=== PATIENT | female | born 1940 | race Caucasian/White ===

== ENCOUNTER 2018-07-16 05:07 | Observation (INO) ==
--- NOTE | 2018-07-16 05:16 | ED ---
HPI General Chief Complaint: Chest Pain Stated Complaint: EVAC/Chest pain Time Seen by Provider: 07/16/18 05:10 Source: patient Mode of arrival: EMS Limitations: no limitations History of Present Illness HPI narrative: Patient complains of warmth sensation over her chest concomitant with palpitations that feel fast, along with chest tightness which was new for her. Patient has a history of hypertension, has a special police and primary care physician who are both from [place]. She just recently moved to [facility]. Past medical history significant for hypertension, diverticulitis with bowel perforation which resulted in a colostomy, patient had a colostomy reversal, hernia repair. MD complaint: Reports palpitations Related Data Home Medications Medication Instructions Recorded Confirmed ascorbic acid (vitamin C) [Vitamin 500 mg PO DAILY 07/16/18 07/16/18 C] aspirin [Aspirin Childrens] 81 mg PO DAILY 07/16/18 07/16/18 biotin 1 mg PO DAILY 07/16/18 07/16/18 cholecalciferol (vitamin D3) 400 unit PO DAILY 07/16/18 07/16/18 [Vitamin D3] fenofibrate 160 mg PO DAILY 07/16/18 07/16/18 omega 6-[id number]-djs-fish oil [Fish Oil] 07/16/18 Allergies Allergy/AdvReac Type Severity Reaction Status Date / Time Penicillins Allergy Redness of Verified 07/16/18 05:37 Skin Review of Systems ROS: all other systems reviewed are negative PMFSH History History Provided By: Patient Medical History Medical History Bowel perforation (Acute) Diverticulitis (Acute) Hypertension (Acute) Sepsis (Acute) Surgical History Surgical History H/O hernia repair (Acute) History of colostomy reversal (Acute) Social History Social History Second Hand Smoke Exposure: No Smoking Status: Former smoker Tobacco Type: Cigarettes How Often Do You Have a Drink Containing Alcohol: 4 or more times a week Recent Travel in [facility] within the Last 8 Weeks: No Recent Out of Country Travel within the Last 8 Weeks: No Exam Narrative Exam Narrative: GENERAL: elderly female patient in no apparent distress. SKIN: Warm and dry. HEAD: Atraumatic. Normocephalic. EYES: Pupils equal and round. No scleral icterus. No injection or drainage. ENT: No nasal bleeding or discharge. Mucous membranes pink and moist. NECK: Trachea midline. No JVD. CARDIOVASCULAR: Regular rate and rhythm. no rubs or gallops RESPIRATORY: No accessory muscle use. Clear to auscultation. Breath sounds equal bilaterally. GASTROINTESTINAL: Abdomen soft, non-tender, nondistended. No rebound or guarding MUSCULOSKELETAL: Extremities without clubbing, cyanosis, or edema. No obvious deformities. NEUROLOGICAL: Awake and alert. No obvious cranial nerve deficits. Motor grossly within normal limits. Five out of 5 muscle strength in the arms and legs. Normal speech. PSYCHIATRIC: Appropriate mood and affect; insight and judgment normal. Course Initial Documented Vital Signs Temperature 98.3 F 07/16/18 05:10 Pulse Rate 94 H 07/16/18 05:10 Respiratory Rate 20 07/16/18 05:10 Blood Pressure 127/74 07/16/18 05:10 Pulse Oximetry 100 07/16/18 05:10 Last Documented Vital Signs Temperature 98.0 F 07/16/18 07:10 Pulse Rate 78 07/16/18 07:17 Respiratory Rate 18 07/16/18 07:10 Blood Pressure 110/67 07/16/18 07:10 Pulse Oximetry 98 07/16/18 07:17 Medical Decision Making MDM Narrative Medical decision making narrative: No leukocytosis, no anemia, no left shift. Thrombocytopenia of 85,000 Coagulation profile within normal limits Normal kidney liver pancreatic functions Normal electrolytes Chest x-ray read by radiologist as no acute cardiopulmonary abnormality identified. Normal beta natruretic peptide, negative first set of cardiac enzymes CT chest read by the radiologist as no PE identified. Nonacute findings include emphysema centrilobular, coronary arteries calcification and moderate atherosclerotic disease of the aorta. Medical Screen Exam Complete: Yes Emergency Medical Condition: Yes Medical Records Medical records reviewed: Yes I reviewed the patient's medical records. Lab Data Lab results reviewed: Yes I reviewed the patient's lab results. Result diagrams: 07/16/18 05:15 07/16/18 05:15 Lab Results 07/16/18 07/16/18 07/16/18 Range/Units 05:15 05:15 05:15 CBC w Diff Slide review pending WBC 5.5 (4.0-11.0) th/mm3 RBC 4.35 (4.00-5.30) mil/mm3 Hgb 12.5 (11.6-15.3) gm/dL Hct 38.2 (35.0-46.0) % MCV 87.8 (80.0-100.0) fL MCH 28.8 (27.0-34.0) pg MCHC 32.8 (32.0-36.0) % RDW 13.0 (11.6-17.2) % Plt Count 85 L (150-450) th/mm3 MPV 8.7 (7.0-11.0) fL Neut % (Auto) 55.4 (16.0-70.0) % Lymph % (Auto) 35.3 (9.0-44.0) % [place] % (Auto) 6.6 (0.0-8.0) % Eos % (Auto) 1.0 (0.0-4.0) % Baso % (Auto) 1.7 (0.0-2.0) % Neut # (Auto) 3.0 (1.8-7.7) th/mm3 Lymph # (Auto) 1.9 (1.0-4.8) th/mm3 [place] # (Auto) 0.4 (0.0-0.9) th/mm3 Eos # (Auto) 0.1 (0.0-0.4) th/mm3 Baso # (Auto) 0.1 (0.0-0.2) th/mm3 WBC Differential . Diff Scan Auto diff confirmed Differential Comment . Platelet Estimate Low L (Normal) Platelet Morphology Enlarged H (Normal) RBC Morphology Normal (Normal) PT 11.7 H (9.8-11.6) sec INR 1.2 Ratio APTT 21.9 L (23.4-31.7) sec Sodium 139 (136-145) meq/L Potassium 3.7 (3.5-5.1) meq/L Chloride 106 (98-107) meq/L Carbon Dioxide 24.9 (21.0-32.0) meq/L Anion Gap 8 (5-15) meq/L BUN 16 (7-18) mg/dL Creatinine 0.69 (0.50-1.00) mg/dL Estimated GFR 82 L (>89) mL/min Random Glucose 114 H (74-106) mg/dL Calcium 8.3 L (8.5-10.1) mg/dL Total Bilirubin 0.7 (0.2-1.0) mg/dL AST 18 (15-37) U/L ALT 25 (10-53) U/L Alkaline Phosphatase 54 (45-117) U/L Total Creatine Kinase 87 (26-192) U/L Troponin I Less than 0.02 L (0.02-0.05) ng/mL B-Natriuretic Peptide (0-100) pg/mL Total Protein 7.2 (6.4-8.2) g/dL Albumin 3.4 (3.4-5.0) g/dL Lipase 277 (73-393) U/L 07/16/18 Range/Units 05:15 CBC w Diff WBC (4.0-11.0) th/mm3 RBC (4.00-5.30) mil/mm3 Hgb (11.6-15.3) gm/dL Hct (35.0-46.0) % MCV (80.0-100.0) fL MCH (27.0-34.0) pg MCHC (32.0-36.0) % RDW (11.6-17.2) % Plt Count (150-450) th/mm3 MPV (7.0-11.0) fL Neut % (Auto) (16.0-70.0) % Lymph % (Auto) (9.0-44.0) % [place] % (Auto) (0.0-8.0) % Eos % (Auto) (0.0-4.0) % Baso % (Auto) (0.0-2.0) % Neut # (Auto) (1.8-7.7) th/mm3 Lymph # (Auto) (1.0-4.8) th/mm3 [place] # (Auto) (0.0-0.9) th/mm3 Eos # (Auto) (0.0-0.4) th/mm3 Baso # (Auto) (0.0-0.2) th/mm3 WBC Differential Diff Scan Differential Comment Platelet Estimate (Normal) Platelet Morphology (Normal) RBC Morphology (Normal) PT (9.8-11.6) sec INR Ratio APTT (23.4-31.7) sec Sodium (136-145) meq/L Potassium (3.5-5.1) meq/L Chloride (98-107) meq/L Carbon Dioxide (21.0-32.0) meq/L Anion Gap (5-15) meq/L BUN (7-18) mg/dL Creatinine (0.50-1.00) mg/dL Estimated GFR (>89) mL/min Random Glucose (74-106) mg/dL Calcium (8.5-10.1) mg/dL Total Bilirubin (0.2-1.0) mg/dL AST (15-37) U/L ALT (10-53) U/L Alkaline Phosphatase (45-117) U/L Total Creatine Kinase (26-192) U/L Troponin I (0.02-0.05) ng/mL B-Natriuretic Peptide 19 (0-100) pg/mL Total Protein (6.4-8.2) g/dL Albumin (3.4-5.0) g/dL Lipase (73-393) U/L Imaging Data Attestation: I personally reviewed and interpreted this imaging study as follows : Radiologist's impression: Chest X-Ray 07/16/18 05:11 CONCLUSION: No acute cardiopulmonary abnormality is identified. Chest CTA 07/16/18 05:26 CONCLUSION: 1. No PE is identified. Additionally, no acute finding is appreciated to explain the chest pain and shortness of breath. 2. Nonacute findings include mild centrilobular emphysema, coronary artery calcification, and moderate atherosclerotic disease of the aorta. ECG Data EKG Prior to Arrival: No Attestation: I personally reviewed and interpreted this ECG as follows: Prior ECG tracings: not available for review Interpretation: Normal sinus rhythm, 77 bpm, incomplete right bundle branch block pattern, questionable possible delta wave along with shortened IN noted Discharge Plan Discharge Disposition Patient Disposition: ED Admit(ED Internal Use Only) Discharge Condition Condition: Fair Discharge Order Discharge Orders: ED Use Only Admit Order (Routine); Ordered 07/16/18 Ordered By: Gwyn Harris Discharge Details Diagnosis: Atypical chest pain Physicians Team ED Provider: Gwyn Harris Primary Care Provider: Primary Care Reginaldoi,Maria L Attending Provider: Rebecca Keyes Discharge Interventions Interventions: ED Discharge Assessment Last Done: 07/16/18 07:58 Vital Signs Last Done: 07/16/18 06:31 Status ED Status: Admitted Observation Patient
[2018-07-16 05:31] LABS: Baso # (Auto) 0.1 th/mm3 (0.0-0.2); Baso % (Auto) 1.7 % (0.0-2.0); Eos # (Auto) 0.1 th/mm3 (0.0-0.4); Hematocrit 38.2 % (35.0-46.0); Hemoglobin 12.5 gm/dL (11.6-15.3); Lymph # (Auto) 1.9 th/mm3 (1.0-4.8); Lymph % (Auto) 35.3 % (9.0-44.0); Mean Corpuscular HGB Conc 32.8 % (32.0-36.0); Mean Corpuscular Hemoglobin 28.8 pg (27.0-34.0); Mean Corpuscular Volume 87.8 fL (80.0-100.0); Mean Platelet Volume 8.7 fL (7.0-11.0); Mono # (Auto) 0.4 th/mm3 (0.0-0.9); Mono % (Auto) 6.6 % (0.0-8.0); Neut % (Auto) 55.4 % (16.0-70.0); Platelet Count 85 th/mm3 (150-450); Red Blood Count 4.35 mil/mm3 (4.00-5.30); White Blood Count 5.5 th/mm3 (4.0-11.0)
[2018-07-16 05:36] LABS: Chloride 106 meq/L (98-107); Potassium 3.7 meq/L (3.5-5.1); Sodium 139 meq/L (136-145)
[2018-07-16 05:40] LABS: Albumin 3.4 g/dL (3.4-5.0); Anion Gap 8 meq/L (5-15); Blood Urea Nitrogen 16 mg/dL (7-18); Calcium 8.3 mg/dL (8.5-10.1); Carbon Dioxide 24.9 meq/L (21.0-32.0); Glucose,Random 114 mg/dL (74-106); Lipase 277 U/L (73-393)
[2018-07-16 05:41] LABS: Activated Partial Thrombo Time 21.9 sec (23.4-31.7); INR 1.2 Ratio; Prothrombin Time 11.7 sec (9.8-11.6)
[2018-07-16 05:43] LABS: Alanine Aminotransferase 25 U/L (10-53); Aspartate Aminotransferase 18 U/L (15-37); Glomerular Filtration Rate 82 mL/min (>89)
--- NOTE | 2018-07-16 05:44 | XR ---
EXAM DATE: 07/16/2018 5:25 AM EST AGE/SEX: 78 years / Female INDICATIONS: Chest pain. CLINICAL DATA: This is the patient's initial encounter. Patient reports that signs and symptoms have been present for 1 day and indicates a pain score of 4/10. MEDICAL/SURGICAL HISTORY: Diverticulitis. Hypotension. Mitral valve prolapse. . Stomach. COMPARISON: No prior exams available for comparison. FINDINGS: Portable AP view of the chest demonstrates a normal-sized cardiac silhouette. No effusion, consolidat ion, or pneumothorax is identified. The bones and soft tissues demonstrate no acute finding. There is focal eventration of the right hemidiaphragm. CONCLUSION: No acute cardiopulmonary abnormality is identified. Electronically signed by: Real Ag MD Board Certified Radiologist 07/16/2018 5:43 AM EST
[2018-07-16 05:45] LABS: Total Protein 7.2 g/dL (6.4-8.2)
[2018-07-16 05:46] LABS: Alkaline Phosphatase 54 U/L (45-117); Creatine Kinase 87 U/L (26-192)
[2018-07-16 05:50] LABS: RBC Morphology Normal (Normal)
--- NOTE | 2018-07-16 06:31 | CT ---
EXAM DATE: 07/16/2018 6:10 AM EST AGE/SEX: 78 years / Female INDICATIONS: Chest pain, shortness of breath. CLINICAL DATA: This is the patient's initial encounter. Patient reports that signs and symptoms have been present for 1 day and indicates a pain score of 4/10. MEDICAL/SURGICAL HISTORY: Hypertension. Diverticulitis. . Hernia repair. RADIATION DOSE: 7.52 CTDI (mGy) COMPARISON: No prior exams available for comparison. TECHNIQUE: Volumetric scanning was performed using a multi-row detector CT scanner during bolus infu kaiden of 75 ml Omnipaque 350 (iohexol) nonionic water-soluble contrast as a single exam dose. The italo a was post processed with a variety of visualization algorithms including full volume maximum intensi ty projection and sliding thin slab reformation. Using automated exposure control and adjustment of the mA and/or kV according to patient size, radiation dose was kept as low as reasonably achievable t o obtain optimal diagnostic quality images. DICOM format image data is available electronically for review and comparison. FINDINGS: Pulmonary Arteries: No filling defect is identified through the segmental and some of the subsegmenta l level pulmonary arteries. Lungs: No consolidation or pneumothorax is identified. There is mild centrilobular emphysema in the upper lobes with biapical scar. Mediastinum: The heart and great vessels demonstrate no acute abnormality. No lymphadenopathy is vis ualized. There is coronary artery calcification with moderate atherosclerotic disease of the aorta. Pleurae: No pleural effusion or pleural thickening. Axillae: No lymphadenopathy. Musculoskeletal: No acute osseous abnormality is identified. There are degenerative changes of the t horacic spine. Other: Visualized upper abdominal structures demonstrate no acute abnormality. Bilateral breast impl ants are present. CONCLUSION: 1. No PE is identified. Additionally, no acute finding is appreciated to explain the chest pain and shortness of breath. 2. Nonacute findings include mild centrilobular emphysema, coronary artery calcification, and modera te atherosclerotic disease of the aorta. Electronically signed by: Real Ag MD Board Certified Radiologist 07/16/2018 6:29 AM EST
[2018-07-16] MEDS ORDERED: Morphine Inj 4 MG/ML Vial IV.PUSH PRN (07:00)
[2018-07-16] MEDS ORDERED: Acetaminophen 500 MG Tablet PO PRN (07:00)
--- NOTE | 2018-07-16 08:33 | P.HP ---
History of Present Illness Primary Care Physician: No Primary Care Physician Chief Complaint: Palpitations and chest pain and elevated blood pressure History of Present Illness: This is a 78-year-old female patient with a known medical history of hyperlipidemia who presented to the ED with complaints of elevated blood pressure as well as intermittent palpitations and intermittent chest tightness. Patient states that over the past month she has been having intermittent readings of elevated blood pressure of systolic in the 170s at times. 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 Patient states that she went home and continued to have readings of systolic in the 190s at times as well as elevated heart rate into the 120s. She also states that she had associated sharp chest pain that occurred in her left-sided chest with no radiation. She states that this pain lasted several hours and was relieved with nitroglycerin in the ED. Patient states she is never had any heart problems in the past. She denies any recent illness including fever, chills, headache, abdominal pain, nausea, vomiting, diarrhea or dysuria. She states that she underwent a stress test over 10 years ago with no remarkable findings. She does not have a family history of any heart disease. She does not use tobacco. She does have a history of hyperlipidemia. She does not take anything for hypertension. - Diagnosis (1) Atypical chest pain Review of Systems All other systems reviewed negative except as stated in HPI PMFSH - History History Provided By: Patient - Medical History Medical History: Medical History (Last Reviewed 07/16/18 @ 10:52 by Rubi Rincon) Bowel perforation Diverticulitis Hypertension Sepsis - Surgical History Surgical History: Surgical History (Last Reviewed 07/16/18 @ 10:52 by Rubi Rincon) H/O hernia repair History of colostomy reversal - Family History Family History: Family History (Last Updated 07/16/18 @ 10:52 by Rubi Rincon) Other Family history in first degree relatives is unremarkable Family history non-contributory - Social History I have reviewed the patient's Social History: Yes - Tobacco History Second Hand Smoke Exposure: No Tobacco Use In Past 30 Days: No Smoking Status: Former smoker Tobacco Type: Cigarettes - Alcohol History How Often Do You Have a Drink Containing Alcohol: 4 or more times a week - Travel History Recent Travel in the [facility] Within the Last 8 Weeks: No Recent Travel Out of the Country Within the Last 8 Weeks: No - Immunization History Tetanus Immunization: Unsure Medications and Allergies Active Medications: Active Medications Acetaminophen (Tylenol) 500 mg PO Q4H PRN PRN Reason: HEADACHE Hydrocodone Bitart/Acetaminophen ([place] 7.5/325) 1 tab PO Q4H PRN PRN Reason: PAIN SCALE 1 TO 7 Aspirin (Aspirin) 325 mg PO DAILY KING Morphine Sulfate (Morphine Inj) 2 mg IV.PUSH Q4H PRN PRN Reason: PAIN SCALE 8 TO 10 Nitroglycerin (Nitrostat Sl) 0.4 mg SL Q5M PRN PRN Reason: CHEST PAIN Ondansetron HCl (Zofran Inj) 4 mg IV.PUSH Q6H PRN PRN Reason: NAUSEA Sodium Chloride (Ns Flush) 2 ml IV.FLUSH BID KING Sodium Chloride (Ns Flush) 2 ml IV.FLUSH PRN PRN PRN Reason: FLUSH AFTER USING IV ACCESS Allergies Allergy/AdvReac Type Severity Reaction Status Date / Time Penicillins Allergy Redness of Verified 07/16/18 05:37 Skin Home Medications Medication Instructions Recorded Confirmed Type ascorbic acid (vitamin C) [Vitamin 500 mg PO DAILY 07/16/18 07/16/18 History C] aspirin [Aspirin Childrens] 81 mg PO DAILY 07/16/18 07/16/18 History biotin 1 mg PO DAILY 07/16/18 07/16/18 History cholecalciferol (vitamin D3) 400 unit PO DAILY 07/16/18 07/16/18 History [Vitamin D3] fenofibrate 160 mg PO DAILY 07/16/18 07/16/18 History omega 6-dtz-sjf-fish oil [Fish Oil] 07/16/18 History Exam Vital signs: Vital Signs 07/16/18 05:10 07/16/18 05:11 07/16/18 05:42 Temperature 98.3 F Pulse Rate 94 H 94 H 94 H Respiratory Rate 20 18 Blood Pressure 127/74 111/64 Pulse Oximetry 100 100 100 07/16/18 06:31 07/16/18 06:32 07/16/18 07:10 Temperature 98.0 F Pulse Rate 78 Respiratory Rate 18 Blood Pressure 100/66 110/67 Pulse Oximetry 97 98 98 07/16/18 07:17 07/16/18 08:00 Temperature 97.1 F L Pulse Rate 78 74 Respiratory Rate 20 Blood Pressure 117/78 Pulse Oximetry 98 98 Intake & Output 07/15/18 07/16/18 07/16/18 18:59 06:59 18:59 Weight 59.421 kg Narrative: GENERAL: Well-developed, well-nourished patient in NAD. SKIN: Warm and dry. No rash. HEAD: Normocephalic. Atraumatic. EYES: Pupils equal and round. No scleral icterus. No injection or drainage. ENT: No nasal bleeding or discharge. Mucous membranes pink and moist. NECK: Supple. Trachea midline. CARDIOVASCULAR: Regular rate and rhythm. S1, S2 noted. No murmur appreciated. No chest pain to palpation RESPIRATORY: No accessory muscle use. Clear to auscultation. Breath sounds equal bilaterally. GASTROINTESTINAL: Abdomen soft, non-tender, nondistended. Normoactive bowel sounds x4. MUSCULOSKELETAL: No obvious deformities. Extremities without clubbing, cyanosis , or edema. NEUROLOGICAL: Awake and alert. No obvious cranial nerve deficits. Motor grossly within normal limits. 5/5 muscle strength in bilateral upper and lower extremities. Normal speech. PSYCHIATRIC: Appropriate mood and affect; insight and judgment normal. Results - Labs CBC & Chem 7: 07/16/18 05:15 07/16/18 05:15 Labs: Laboratory Results - last 24 hr 07/16/18 07/16/18 07/16/18 05:15 05:15 05:15 CBC w Diff Slide review pending WBC 5.5 RBC 4.35 Hgb 12.5 Hct 38.2 MCV 87.8 MCH 28.8 MCHC 32.8 RDW 13.0 Plt Count 85 L MPV 8.7 Neut % (Auto) 55.4 Lymph % (Auto) 35.3 [place] % (Auto) 6.6 Eos % (Auto) 1.0 Baso % (Auto) 1.7 Neut # (Auto) 3.0 Lymph # (Auto) 1.9 [place] # (Auto) 0.4 Eos # (Auto) 0.1 Baso # (Auto) 0.1 WBC Differential . Diff Scan Auto diff confirmed Differential Comment . Platelet Estimate Low L Platelet Morphology Enlarged H RBC Morphology Normal PT 11.7 H INR 1.2 APTT 21.9 L Sodium 139 Potassium 3.7 Chloride 106 Carbon Dioxide 24.9 Anion Gap 8 BUN 16 Creatinine 0.69 Estimated GFR 82 L Random Glucose 114 H Calcium 8.3 L Total Bilirubin 0.7 AST 18 ALT 25 Alkaline Phosphatase 54 Total Creatine Kinase 87 Troponin I Less than 0.02 L B-Natriuretic Peptide Total Protein 7.2 Albumin 3.4 Lipase 277 07/16/18 05:15 CBC w Diff WBC RBC Hgb Hct MCV MCH MCHC RDW Plt Count MPV Neut % (Auto) Lymph % (Auto) [place] % (Auto) Eos % (Auto) Baso % (Auto) Neut # (Auto) Lymph # (Auto) [place] # (Auto) Eos # (Auto) Baso # (Auto) WBC Differential Diff Scan Differential Comment Platelet Estimate Platelet Morphology RBC Morphology PT INR APTT Sodium Potassium Chloride Carbon Dioxide Anion Gap BUN Creatinine Estimated GFR Random Glucose Calcium Total Bilirubin AST ALT Alkaline Phosphatase Total Creatine Kinase Troponin I B-Natriuretic Peptide 19 Total Protein Albumin Lipase - Imaging Impressions Chest X-Ray 07/16/18 05:11 CONCLUSION: No acute cardiopulmonary abnormality is identified. Chest CTA 07/16/18 05:26 CONCLUSION: 1. No PE is identified. Additionally, no acute finding is appreciated to explain the chest pain and shortness of breath. 2. Nonacute findings include mild centrilobular emphysema, coronary artery calcification, and moderate atherosclerotic disease of the aorta. Caprini VTE Risk Assessment Caprini VTE Risk Assessment: Moderate/High Risk (score >= 2) Caprini Risk Assessment Model: Point Value = 1 Point Value = 2 Point Value = 3 Point Value = 5 Age 41-60 Minor surgery BMI > 25 kg/m2 Swollen legs Varicose veins or History of unexplained or recurrent spontaneous Oral contraceptives or hormone replacement Sepsis (< 1 month) Serious lung disease, including pneumonia (< 1 month) Abnormal pulmonary function Acute myocardial infarction Congestive heart failure (< 1 month) History of inflammatory bowel disease Medical patient at bed rest Age 61-74 Arthroscopic surgery Major open surgery (> 45 min) Laparoscopic surgery (> 45 min) Malignancy Confined to bed (> 72 hours) Immobilizing plaster cast Central venous access Age >= 75 History of VTE Family history of VTE Factor V Leiden Prothrombin [id number] Lupus anticoagulant Anticardiolipin antibodies Elevated serum homocysteine Heparin-induced thrombocytopenia Other congenital or acquired thrombophilia Stroke (< 1 month) Elective arthroplasty Hip, pelvis, or leg fracture Acute spinal cord injury (< 1 month) Prophylaxis Regimen: Total Risk Factor Score Risk Level Prophylaxis Regimen 0-1 Low Early ambulation 2 Moderate Order ONE of the following: *Sequential Compression Device (SCD) *Heparin 5000 units SQ BID 3-4 Higher Order ONE of the following medications: *Heparin 5000 units SQ TID *Enoxaparin/Lovenox 40 mg SQ daily (WT < 150 kg, CrCl > 30 mL/min) *Enoxaparin/Lovenox 30 mg SQ daily (WT < 150 kg, CrCl > 10-29 mL/min) *Enoxaparin/Lovenox 30 mg SQ BID (WT < 150 kg, CrCl > 30 mL/min) AND/OR *Sequential Compression Device (SCD) 5 or more Highest Order ONE of the following medications: *Heparin 5000 units SQ TID (Preferred with Epidurals) *Enoxaparin/Lovenox 40 mg SQ daily (WT < 150 kg, CrCl > 30 mL/min) *Enoxaparin/Lovenox 30 mg SQ daily (WT < 150 kg, CrCl > 10-29 mL/min) *Enoxaparin/Lovenox 30 mg SQ BID (WT < 150 kg, CrCl > 30 mL/min) AND *Sequential Compression Device (SCD) Assessment and Plan - Assessment (1) Atypical chest pain Code(s): R07.89 - Other chest pain Status: Acute Plan: Patient has been admitted to chest pain center for observation. Serial EKGs and serial troponins have been ordered for ruling out ACS purposes. Initial troponin flat. We will continue to monitor trends. EKG reviewed, no ST changes indicate ischemia, controlled heart rate. Chest x-ray reviewed no acute cardiopulmonary disease noted. CT of the chest was done with no PE identified. No acute findings were noted. CBC and BMP reviewed, essentially unremarkable. Blood pressure and heart rate have been normal since presentation. BNP within normal limits. Was given aspirin in ED. We will continue daily. Pain control with IV morphine as needed as well as [place] p.o. Will continue to monitor blood pressure trends. If needed will prescribe an antihypertensive for home. If ACS ruled out with cardiac enzymes and cardiac troponins, patient will undergo a cardiac Lexiscan to further rule out any ischemia. Patient is stable at this time and agreeable to the plan. Further hospitalization and treatment plan will depend on nuclear imaging results. Hyperlipidemia Will continue home medication. DVT prophylaxis: SCDs. Ambulation.
[2018-07-16] MEDS ORDERED: Aspirin 325 MG Tablet PO SCH (09:00)
[2018-07-16] MEDS ORDERED: Regadenoson Inj 0.4 MG/5 ML Syringe IV.PUSH ONE (10:20)
[2018-07-16 10:54] LABS: Creatine Kinase 77 U/L (26-192)
--- NOTE | 2018-07-16 11:22 | ECG ---
Date Performed: 07/16/2018 Time Performed: 05:13:35 PTAGE: 78 years EKG: Sinus rhythm WITH SHORT HI INTERVAL INCOMPLETE RIGHT BUNDLE BRANCH BLOCK BORDERLINE ECG NO PREVIOUS TRACING DOCTOR: Saima Garcia Interpretating Date/Time 07/18/2018 07:25:33
[2018-07-16 12:40] VITALS: RESP 18; O2SAT 100
[2018-07-16 13:39] LABS: Creatine Kinase 79 U/L (26-192)
--- NOTE | 2018-07-16 14:50 | TR ---
Date Performed: 07/16/2018 Time Performed: 14:16:04 DOCTOR: Domingo Melissa DRUG LIST: CLINICAL HISTORY: ANGINA REASON FOR TEST: Angina REASON FOR ENDING: OBSERVATION: CONCLUSION: COMMENTS: Lexiscan stress test was performed under standard four minute protocol. Radionuclide was injected one minute prior to ending the test. No electrocardiographic abormalities were present t o suggest ischemia. Nuclear imaging and interpretation are pending.
--- NOTE | 2018-07-16 15:05 | NM ---
EXAM DATE: 07/16/2018 3:00 PM EST AGE/SEX: 78 years / Female INDICATIONS:Angina. . Left sided chest pain for one month. CLINICAL DATA: This is the patient's initial encounter. Patient reports that signs and symptoms have been present for 1 month and indicates a pain score of 4/10. MEDICAL/SURGICAL HISTORY: Hypertension. Inguinal hernia repair. COMPARISON: No prior exams available for comparison. No external comparison. DOSE: 8.7 mCi Tc 99m Myoview at rest 25.5 mCi [id number] at stress 0.4 mg Lexiscan STRESS SYMPTOMS: Shortness of breath and nausea. EJECTION FRACTION: 62 % TECHNIQUE: The patient underwent pharmacologic stress with infusion of prescribed dose. Continuous ECG tracing was monitored during stress. Gated SPECT imaging was performed after stress and conventi onal SPECT imaging was performed at rest. The examination was performed on a SPECT/CT scanner, both attenuation and non-corrected datasets were reviewed. FINDINGS: Distribution: The maximum perfused segment at stress is in the anterolateral wall. Perfusion Study: The pattern of perfusion at stress shows some relative fixed diminished perfusion to the apex. No reversibility to suggest ischemia. Gated Study: There are intact wall motion and wall thickening without hypokinetic or dyskinetic segm ents. The ejection fraction is calculated at 62%. RISK CATEGORY: Low (<1% Annual Mortality Rate) CONCLUSION: 1. 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 2. No scintigraphic findings of ischemia. 3. Excellent wall motion throughout been estimated ejection fraction of 62% Electronically signed by: Delfin Nation MD Board Certified Radiologist 07/16/2018 3:04 PM EST
[2018-07-16 15:50] VITALS: BP 121/83; PULSE 72; TEMP 96.9
--- NOTE | 2018-07-17 23:41 | ECG ---
Date Performed: 07/16/2018 Time Performed: 09:27:59 PTAGE: 78 years EKG: Sinus rhythm WITH SHORT AR INTERVAL INCOMPLETE RIGHT BUNDLE BRANCH BLOCK NONSPECIFIC T-WAVE ABNORMALITY BORDERLIN E ECG PREVIOUS TRACING : 07/16/2018 05.13 DOCTOR: Maynor Hernandez Interpretating Date/Time 07/17/2018 23:39:52
== END 2018-07-16 17:16 | disposition home or self-care (01) ==
LOC: PHED 05:07 → PHEDA 05:07 → PH3 08:04
PROVIDERS: ADMIT Hospitalist; ATTEND Hospitalist
CPT/HCPCS: 71010; 71045; 71275; 78452; 80053; 82550; 83520; 83690; 83880; 84484; 85025; 85610; 85730; 93005; 93017; 99285; A9502; G0378; J2785; Q9967